=== PATIENT | female | born 1995 | race Caucasian/White ===

== ENCOUNTER → 2021-02-01 | Outpatient (CLI) | payer OTHER ==
[~2021-02-01] MED LIST: BENTYL 20MG TAB20 MG PO; CAMRESE LO TAB1 EACH PO; IBUPROFEN600 MG PO; NORCO 5-325 TA1 EACH PO; REGLAN10 MG PO; ZOFRAN4 MG PO
== END ==
LOC: KOH-I 09:35
DX: R59.0 Localized enlarged lymph nodes (principal); K76.0 Fatty (change of) liver, not elsewhere classified; Z90.49 Acquired absence of other specified parts of digestive tract
CPT/HCPCS: 76536; 76700

== ENCOUNTER → 2022-02-26 | Outpatient (CLI) | payer OTHER | LOC: EXRD 09:45 | DX: R59.1 Generalized enlarged lymph nodes (principal); K76.0 Fatty (change of) liver, not elsewhere classified | CPT/HCPCS: 76536; 76700 ==